=== PATIENT | female | born 1950 | race African-American/Black ===

== ENCOUNTER 2019-02-27 12:01 | Emergency (ER) | payer MEDICARE, OTHER ==
[~2019-02-27] VITALS: Ht 170.2 cm; Wt 61.2 kg
[2019-02-27 12:10] VITALS: BP 116/70
[2019-02-27] MEDS ORDERED: ALBUTEROL2.5 MG/3 M INH (12:18)
[2019-02-27] MEDS: Albuterol/Ipratropium 3ml neb HHN SCH ×2 (12:27→12:28)
[2019-02-27] MEDS ORDERED: Dexamethasone 4mg/ml vial IVP ONE (12:30)
[2019-02-27 13:46] LABS: BASOPHILS % (AUTO) 1.2 % (0.0-2.0); EOSINOPHILS % (AUTO) 3.1 % (0.0-3.0); HEMATOCRIT 40.3 % (37.0-47.0); HEMOGLOBIN 12.8 G/DL (12.0-16.0); MEAN CORPUSCULAR VOLUME 100 FL (80-99); MONOCYTES % (AUTO) 7.2 % (1.0-10.0); NEUTROPHILS % (AUTO) 45.5 % (45.0-75.0); PLATELET COUNT 104 K/UL (150-450); RED BLOOD COUNT 4.04 M/UL (4.20-5.40); RED CELL DISTRIBUTION WIDTH 12.7 % (11.6-14.8); WHITE BLOOD COUNT 7.3 K/UL (4.8-10.8)
[2019-02-27 13:51] LABS: ANION GAP 8 mmol/L (5-15); BLOOD UREA NITROGEN 11 mg/dL (7-18); CALCIUM 8.7 MG/DL (8.5-10.1); CARBON DIOXIDE 30 MMOL/L (21-32); CHLORIDE 108 MMOL/L (98-107); CREATININE 0.9 MG/DL (0.55-1.30); POTASSIUM 3.1 MMOL/L (3.5-5.1); SODIUM 146 MMOL/L (136-145)
[2019-02-27 14:02] LABS: ALANINE AMINOTRANSFERASE 34 U/L (12-78); ALBUMIN 3.6 G/DL (3.4-5.0); ALKALINE PHOSPHATASE 77 U/L (46-116); ASPARTATE AMINO TRANSFERASE 23 U/L (15-37); BILIRUBIN,TOTAL 0.6 MG/DL (0.2-1.0)
--- NOTE | 2019-02-27 14:05 | Emergency Room Report ---
History of Present Illness General Chief Complaint: Asthma Source: Patient Present Illness HPI 68-year-old female with history of asthma and COPD here complaining of 3 days of cough and asthma exacerbation. Patient reports that she has been using her albuterol nebulizer and inhaler at home with minimal relief. Denies fever and chills, sore throat and congestion. Denies recent travel, tobacco smoke, drug use, alcohol intake. Complains of increased wheezing and shortness of breath however denies chest pain pain radiation. Denies headache or dizziness. Has not taken any medication for her cough. Denies abdominal pain, nausea vomiting , no other associated symptoms. Allergies: Coded Allergies: No Known Allergies (Unverified , 02/27/19) Patient History Past Medical History: see triage record Past Surgical History: unable to obtain Pertinent Family History: none Now: No Immunizations: UTD Reviewed Nursing Documentation: PMH: Agreed; PSxH: Agreed Nursing Documentation-PMH Past Medical History: No History, Except For Hx Asthma: Yes Hx COPD: Yes - FLUIDS IN LUNGS Review of Systems All Other Systems: negative except mentioned in HPI Physical Exam Vital Signs Date Time Temp Pulse Resp B/P (MAP) Pulse Ox O2 Delivery O2 Flow Rate FiO2 02/27/19 12:04 97.9 89 20 116/70 (85) 93 Room Air 02/27/19 12:31 21 Sp02 EP Interpretation: reviewed, abnormal General Appearance: no apparent distress, alert, GCS 15, non-toxic Head: normocephalic, atraumatic Eyes: bilateral eye normal inspection, bilateral eye PERRL ENT: hearing grossly normal, normal pharynx, no angioedema, normal voice Neck: full range of motion, supple/symm/no masses Respiratory: chest non-tender, no rhonchi, no respiratory distress, no retraction, no accessory muscle use, wheezing - Diffuse wheezing Cardiovascular #1: regular rate, rhythm, no edema, no murmur Gastrointestinal: normal bowel sounds, non tender, soft, non-distended, no guarding, no rebound Rectal: deferred Genitourinary: no CVA tenderness Musculoskeletal: back normal, no calf tenderness Neurologic: alert, motor strength/tone normal, oriented x3, sensory intact, responsive, speech normal Psychiatric: judgement/insight normal, memory normal, mood/affect normal, no suicidal/homicidal ideation Skin: no rash Lymphatic: no adenopathy Medical Decision Making PA Attestation All my diagnosis and treatment plans were reviewed ad discussed with my supervising physician Dr. Selby Diagnostic Impression: Primary Impression: Asthma exacerbation Additional Impression: Atypical pneumonia ER Course 68-year-old female with history of asthma and COPD here complaining of 3 days of cough and asthma exacerbation. Patient reports that she has been using her albuterol nebulizer and inhaler at home with minimal relief. Denies fever and chills, sore throat and congestion. Denies recent travel, tobacco smoke, drug use, alcohol intake. Complains of increased wheezing and shortness of breath however denies chest pain pain radiation. Denies headache or dizziness. Has not taken any medication for her cough. Denies abdominal pain, nausea vomiting , no other associated symptoms. Ddx considered but are not limited to: bronchitis, PNA, URI viral, bacterial bronchitis Vital signs: are WNL, pt. is afebrile H&PE are most consistent with: Asthma exacerbation, atypical pneumonia ORDERS: Chest x-ray, chest pain order set, Phenergan, prednisone, azithromycin, ED INTERVENTIONS: Albuterol ipratropium breathing treatment x3, dexamethasone, potassium chloride DISCHARGE: At this time pt. is stable for d/c to home. Will provide printed patient care instructions, and any necessary prescriptions. Care plan and follow up instructions have been discussed with the patient prior to discharge. Patient states that she feels much better after the breathing treatment. Patient follow-up with wildlife conservationist and reports that she has an upcoming appointment with a wildlife conservationist this week. Advised her to intake food high in vision potassium and increase oral hydration specially electrolyte abnormality however does not need a prescription for potassium as it 1 dose was given in the ER. If worsening symptoms return to emergency room Chest X-Ray Diagnostic Results Chest X-Ray Diagnostic Results : Chest X-Ray Ordered: Yes # of Views/Limited/Complete: 1 View Indication: Shortness of Breath EP Interpretation: Yes KELLY Xray: Interpretation reviewed, by supervising MD, and agrees with findings. Interpretation: no consolidation, no effusion, no pneumothorax Impression: No acute disease Electronically Signed by: Bryanna King PA-C Last Vital Signs Date Time Temp Pulse Resp B/P (MAP) Pulse Ox O2 Delivery O2 Flow Rate FiO2 02/27/19 12:35 80 20 96 Room Air 21 02/27/19 12:04 97.9 116/70 (85) Disposition: HOME, SELF-CARE Condition: Stable Scripts Promethazine Hcl (PROMETHAZINE HCL*) 6.25 Mg/5 Ml Syrup 5 ML ORAL Q6H, #120 ML 0 Refills Prov: Bryanna Guthrie 02/27/19 Prednisone* (PREDNISONE*) 20 Mg Tablet 40 MG ORAL DAILY for 5 Days, #10 TAB Prov: Bryanna Guthrie 02/27/19 Azithromycin* (ZITHROMAX*) 250 Mg Tablet 250 MG ORAL DAILY, #6 TAB 0 Refills Take two tables once daily for 1 day, then one tablet once daily for 4 days. Prov: Bryanna Guthrie 02/27/19 Referrals: JARAD SUAREZ [facility],REFERRING (PCP) Patient Instructions: Asthma, Adult, Upper Respiratory Infection, Adult, Easy- to-Read Additional Instructions: Take medication as directed, follow-up with your primary care provider see a history of COPD asthma exacerbation. If worsening symptoms return to the emergency room Bryanna Guthrie Feb 27, 2019 14:05
[2019-02-27] MEDS ORDERED: PROMETHAZI6.25 MG/1 ORAL (14:10)
[2019-02-27] MEDS ORDERED: PREDNISONE20 MG ORAL (14:10)
[2019-02-27] MEDS ORDERED: ZITHROMAX250 MG ORAL (14:10)
[2019-02-27 14:40] VITALS: BP 116/70
--- NOTE | 2019-02-28 10:18 | Diagnostic Imaging Report ---
Indication: Chest pain Technique: One view of the chest Comparison: none Findings: Lungs are somewhat hyperinflated. Calcified granuloma projects at the left lung base. The lungs and pleural spaces are otherwise clear. The heart size is normal. Impression: Possible hyperinflation, could indicate COPD changes. Old granulomatous disease No acute process otherwise
== END 2019-02-27 14:40 | disposition home or self-care (01) ==
LOC: EMR 12:44
DX: J45.901 Unspecified asthma with (acute) exacerbation (principal); J18.9 Pneumonia, unspecified organism; J44.9 Chronic obstructive pulmonary disease, unspecified
CPT/HCPCS: 36415; 36600; 71045; 80053; 80307; 82803; 83880; 84484; 85025; 86850; 86900; 86901; 93005; 94640; 94664; 96374; 99284; J1100; J7620; J8499